=== PATIENT | female | born 1985 | race Two or more races ===

== ENCOUNTER 2018-11-03 10:37 | Emergency (ER) | payer OTHER ==
--- NOTE | 2018-11-03 11:20 | ER Document Report ---
ED Medical Screen (RME) - General Chief Complaint: Abdominal Pain Stated Complaint: ABDOMINAL PAIN Time Seen by Provider: 11/03/18 11:08 Notes: 33-year-old female patient complaining of left lower quadrant abdominal pain for the past 2 weeks. Initially it would come and go, it is getting worse now. Last menstrual period started 4 days ago and ended today, it was normal and on time. The patient is not on any control. I have greeted and performed a rapid initial assessment of this patient. A comprehensive ED assessment and evaluation of the patient, analysis of test results and completion of the medical decision making process will be conducted by additional ED providers. TRAVEL OUTSIDE OF THE [place] IN LAST 30 DAYS: No - Related Data Allergies/Adverse Reactions: No Known Allergies Allergy (Verified 11/03/18 10:38) Past Medical History - Social History Chew tobacco use (# tins/day): No Frequency of alcohol use: None Drug Abuse: None Renal/ Medical History: Denies: Hx Peritoneal Dialysis Past Surgical History: Reports: Hx Section - x 2 Physical Exam - Vital signs Vitals: Temp Pulse Resp BP Pulse Ox 98.8 F 77 16 105/54 L 100 11/03/18 10:42 11/03/18 10:42 11/03/18 10:42 11/03/18 10:42 11/03/18 10:42 Course - Vital Signs Vital signs: Temp Pulse Resp BP Pulse Ox 98.8 F 77 16 105/54 L 100 11/03/18 10:42 11/03/18 10:42 11/03/18 10:42 11/03/18 10:42 11/03/18 10:42
[2018-11-03 11:58] LABS: ABSOLUTE BASOPHILS # (AUTO) 0.1 10^3/uL (0.0-0.2); ABSOLUTE EOSINOPHILS # (AUTO) 0.3 10^3/uL (0.0-0.6); ABSOLUTE LYMPHOCYTES (AUTO) 1.1 10^3/uL (0.5-4.7); ABSOLUTE MONOCYTES (AUTO) 0.4 10^3/uL (0.1-1.4); ABSOLUTE NEUT (AUTO) 3.3 10^3/uL (1.7-8.2); EOSINOPHILS % (AUTO) 5.7 % (0-6); HEMATOCRIT 36.3 % (36.0-47.0); HEMOGLOBIN 12.2 g/dL (12.0-15.5); MEAN CORPUSCULAR HEMOGLOBIN 28.2 pg (27.0-33.4); MEAN CORPUSCULAR HGB CONC 33.5 g/dL (32.0-36.0); MEAN CORPUSCULAR VOLUME 84 fl (80-97); MONOCYTES % (AUTO) 7.2 % (3-13); PLATELET COUNT 256 10^3/uL (150-450); RED BLOOD COUNT 4.32 10^6/uL (3.72-5.28); RED CELL DISTRIBUTION WIDTH 13.9 % (11.5-14.0); SEGMENTED NEUTROPHILS % (AUTO) 64.1 % (42-78); TOTAL CELLS COUNTED % (AUTO) 100 %; WHITE BLOOD COUNT 5.1 10^3/uL (4.0-10.5)
[2018-11-03 12:11] LABS: ALANINE AMINOTRANSFERASE 17 U/L (9-52); ALBUMIN 4.6 g/dL (3.5-5.0); ALKALINE PHOSPHATASE 53 U/L (38-126); ANION GAP 9 (5-19); ASPARTATE AMINO TRANSFERASE 16 U/L (14-36); BILIRUBIN,DIRECT 0.1 mg/dL (0.0-0.4); BILIRUBIN,TOTAL 0.4 mg/dL (0.2-1.3); BLOOD UREA NITROGEN 12 mg/dL (7-20); CALCIUM 10.2 mg/dL (8.4-10.2); CARBON DIOXIDE 29 mmol/L (22-30); CHLORIDE 105 mmol/L (98-107); GLUCOSE 80 mg/dL (75-110); POTASSIUM 4.2 mmol/L (3.6-5.0); SODIUM 143.3 mmol/L (137-145); TOTAL PROTEIN 7.9 g/dL (6.3-8.2)
--- NOTE | 2018-11-03 12:18 | RADIOLOGY REPORT (SQ) ---
EXAM DESCRIPTION: U/S NON-OB PELVIS TV W/O DOP COMPLETED DATE/TIME: 11/03/2018 12:03 pm REASON FOR STUDY: LLQ/pelvic pain x 2 weeks, getting worse COMPARISON: None. TECHNIQUE: Dynamic and static grayscale images acquired of the pelvis via transvaginal approach and recorded on PACS. Additional selected color Doppler and spectral images recorded. LIMITATIONS: None. FINDINGS: UTERUS: Contour normal. No mass. ENDOMETRIAL STRIPE: No focal or generalized thickening. No masses. CERVIX: No nabothian cysts. RIGHT OVARY AND DOPPLER: Ovary not visualized. LEFT OVARY AND DOPPLER: Ovary not visualized. FREE FLUID: Small amount of free fluid in the posterior cul-de-sac. Probably physiologic. OTHER: No other significant finding. MEASUREMENTS: UTERUS: 4.4 x 6.0 x 7.3 cm. ENDOMETRIAL STRIPE: 7.3 mm. RIGHT OVARY: Not visualized. LEFT OVARY: Not visualized. IMPRESSION: OVARIES NOT VISUALIZED. OTHERWISE UNREMARKABLE TRANSVAGINAL PELVIC ULTRASOUND. TECHNICAL DOCUMENTATION: JOB ID: [id number] [employer]- All Rights Reserved Rev-12/22 Reading location - IP/workstation name: [email or web address]
[2018-11-03 12:23] LABS: APPEARANCE,URINE CLEAR; BILIRUBIN,URINE NEGATIVE (NEGATIVE); COLOR,URINE YELLOW; GLUCOSE, URINE NEGATIVE (NEGATIVE); KETONES,URINE NEGATIVE (NEGATIVE); LEUKOCYTE ESTERASE,URINE NEGATIVE (NEGATIVE); NITRITE,URINE NEGATIVE (NEGATIVE); PROTEIN,URINE NEGATIVE (NEGATIVE); URINE SPECIFIC GRAVITY 1.024; UROBILINOGEN,URINE NEGATIVE mg/dL (<2.0)
--- NOTE | 2018-11-03 12:45 | ER Document Report ---
ED General - General Chief Complaint: Abdominal Pain Stated Complaint: ABDOMINAL PAIN Time Seen by Provider: 11/03/18 11:08 TRAVEL OUTSIDE OF THE [place] IN LAST 30 DAYS: No - HPI Notes: Patient presents to the emergency department for evaluation of left lower quadrant abdominal pain. Is been present for the last 2 weeks. It waxes and wanes but is been significant only present over this whole period of time. She states she thought it was just getting ready to start menstruation, but that came and passed normally and her pain remains. She denies any fevers or chills. No diarrhea or constipation. She states she had one episode of emesis about 10 days ago, but otherwise within normal appetite and tolerating food and fluids. No vaginal discharge. - Related Data Allergies/Adverse Reactions: No Known Allergies Allergy (Verified 11/03/18 10:38) Past Medical History - General Information source: Patient - Social History Smoking Status: Never Smoker Chew tobacco use (# tins/day): No Frequency of alcohol use: None Drug Abuse: None Family History: Reviewed & Not Pertinent Patient has suicidal ideation: No Patient has homicidal ideation: No Renal/ Medical History: Denies: Hx Peritoneal Dialysis Past Surgical History: Reports: Hx Section - x 2 Review of Systems - Review of Systems Constitutional: No symptoms reported EENT: No symptoms reported Cardiovascular: No symptoms reported Respiratory: No symptoms reported Gastrointestinal: See HPI Genitourinary: No symptoms reported Female Genitourinary: No symptoms reported Musculoskeletal: No symptoms reported Skin: No symptoms reported Neurological/Psychological: No symptoms reported Physical Exam - Vital signs Vitals: Temp Pulse Resp BP Pulse Ox 98.8 F 77 16 105/54 L 100 11/03/18 10:42 11/03/18 10:42 11/03/18 10:42 11/03/18 10:42 11/03/18 10:42 - Notes Notes: Vital signs reviewed, please refer to chart. Patient is normocephalic, atraumatic. Pupils equal round, reactive to light. Neck is supple without meningismus. Heart is regular rate and rhythm. Lungs are clear to auscultation bilaterally. Abdomen is soft, mild left lower quadrant tenderness without rebound or guarding, normoactive bowel sounds throughout. Extremities without cyanosis, clubbing, edema. Peripheral pulses are equal. Skin is warm and dry. Patient is awake, alert, neurological exam is nonfocal. Course - Re-evaluation Re-evalutation: 11/03/18 12:43 Patient presents to the emergency department for evaluation of abdominal pain. She was seen initially by the emergency physician in triage. Laboratory investigations were found and reviewed. These were found to be unremarkable. Patient's abdomen is mildly tender but she shows no signs of a surgical abdomen. She has no other constitutional symptoms. At this point we will go ahead and treat her with some Bentyl to see if this helps with her cramping abdominal pain. She and her are both told that if her pain changes or if she deve lops new symptoms she needs to return to the ED for evaluation. She voiced understanding to this. She is to otherwise follow-up with primary care next week. - Vital Signs Vital signs: Temp Pulse Resp BP Pulse Ox 98.8 F 77 16 105/54 L 100 11/03/18 10:42 11/03/18 10:42 11/03/18 10:42 11/03/18 10:42 11/03/18 10:42 - Laboratory Result Diagrams: 11/03/18 11:44 11/03/18 11:44 Laboratory results interpreted by me: 11/03/18 11:44 Urine Ascorbic Acid 40 H Discharge - Discharge Clinical Impression: Abdominal pain Qualifiers: Abdominal location: left lower quadrant Qualified Code(s): R10.32 - Left lower quadrant pain Disposition: HOME, SELF-CARE Instructions: Abdominal Pain ([facility]), Antispasmodics ([facility]) Additional Instructions: Take medication as prescribed. Follow-up with your primary care physician next week. Return to the emergency department with worsening or new concerning symptoms.
[2018-11-03 13:02] VITALS: BP 90/58
== END 2018-11-03 13:04 | disposition home or self-care (01) ==
LOC: ER 10:37
DX: R10.32 Left lower quadrant pain (principal); R11.10 Vomiting, unspecified
CPT/HCPCS: 36415; 76830; 80053; 81001; 84703; 85025; 99284

== ENCOUNTER 2019-07-22 10:33 | Emergency (ER) | payer OTHER ==
[2019-07-22 11:18] VITALS: BP 120/57
[2019-07-22] MEDS ORDERED: ACETAMINOPHEN 325 MG TABLET PO ONE (13:03)
[2019-07-22] MEDS ORDERED: DIPH/PERTUSS(ACELL)/TETANUS VAC/PF 0.5 ML SYR (>=10YO) IM ONE (13:04)
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
== END 2019-07-22 14:50 | disposition home or self-care (01) ==
LOC: ER 10:33
DX: S20.219A Contusion of unspecified front wall of thorax, initial encounter (principal); S20.312A Abrasion of left front wall of thorax, initial encounter; R07.89 Other chest pain; V49.40XA Driver injured in collision with unspecified motor vehicles in traffic accident, initial encounter
CPT/HCPCS: 71046; 90471; 90715; 99284